=== PATIENT | female | born 1960 ===

== ENCOUNTER 2021-04-04 08:58 | Observation (INO) ==
[~2021-04-04 08:58] MED LIST: Buffered Lidocaine 1% SYRIN 1 ml INTRADERM ONE; Lactated Ringers 1000 ml BAG 1,000 ML IV SCH; Phenylephrine IV 10 MG/ML 1 ml VIAL ONE
[2021-04-04] MEDS ORDERED: ceFAZolin 2 GM PREMIX 2 GM/50 ML BAG ONE (09:13)
[2021-04-04] MEDS ORDERED: ceFAZolin 1 GM ADVAN 1 GM ADDV.VIAL IVPB ONE (09:56)
[2021-04-04] MEDS ORDERED: Lidocaine 2% PF 10 ML AMP ONE (09:59)
[2021-04-04] MEDS ORDERED: Bupivacaine 0.5% SDV PF 30ML VIAL ONE (09:59)
[2021-04-04] MEDS ORDERED: Bupivacaine 0.25% SDV 30 ML ONE (09:59)
[2021-04-04] MEDS ORDERED: fentaNYL 100 mcg/2 ml 50 MCG/ML VIAL ONE ×2 (10:41→12:07)
[2021-04-04] MEDS ORDERED: Midazolam 5 mg/5 ml VIAL 1 mg/ml 5 ml VIAL (5 mg) ONE (10:41)
[2021-04-04] MEDS ORDERED: Midazolam 2 mg/2 ml VIAL 1 mg/ml 2 ml VIAL (2 mg) ONE (11:04)
[2021-04-04] MEDS ORDERED: ROPIVACAINE 5 MG/ML 30 ML BTL (0.5%) ONE (11:32)
[2021-04-04] MEDS ORDERED: Lidocaine 2% PF 5 ML VIAL ONE (13:19)
[2021-04-04] MEDS ORDERED: Propofol 10 MG/ML 20 ML BTL ONE ×2 (13:19→13:50)
[2021-04-04] MEDS ORDERED: Morphine 2 MG/ML SYRINGE IV PRN (13:22)
[2021-04-04] MEDS ORDERED: diPHENhydraMINE 25 mg TAB PO PRN (13:22)
[2021-04-04] MEDS ORDERED: Ondansetron ODT 4 mg TAB 4 MG TAB PO PRN (13:22)
[2021-04-04] MEDS ORDERED: Ondansetron 4 mg VIAL 2 MG/ML 2 ml VIAL IV PRN (13:22)
[2021-04-04] MEDS ORDERED: Magnesium Hydroxide LIQ 30 ML UDC PO PRN (13:22)
[2021-04-04] MEDS ORDERED: diPHENhydraMINE IV 50 MG/ML 1 ml VIAL (BENADRYL) IV PRN (13:22)
[2021-04-04] MEDS ORDERED: Lactulose 30 ml UDC PO PRN (13:22)
[2021-04-04] MEDS ORDERED: Ondansetron 4 mg VIAL 2 MG/ML 2 ml VIAL ONE (13:44)
[2021-04-04] MEDS: Lactated Ringers 1000 ml BAG 1,000 ML IV SCH (16:08)
[2021-04-04] MEDS: oxyCODONE/Acetamin 5/325 mg TAB PO PRN ×2 (17:41→21:57)
[2021-04-04] MEDS: PTO:Dorzolamide 2% OPTH (NF) 10 ML BTL RIGHT EYE SCH (20:16)
[2021-04-04] MEDS: PTO:Brimonidine/Timolol 0.2%/0.5% OPTH(NF) SOL 5 ML RIGHT EYE SCH (20:16)
[2021-04-04] MEDS: Magnesium Hydroxide LIQ 30 ML UDC PO SCH (20:17)
[2021-04-04] MEDS: ceFAZolin 1 GM ADVAN 1 GM in NS 0.9% 50 ML 50 ML IVPB SCH (20:50)
[2021-04-04] MEDS ORDERED: PTO:Latanoprost 0.005% 2.5 ml BTL RIGHT EYE SCH (21:00)
[2021-04-04] MEDS ORDERED: DULoxetine DR 60 mg CAP PO SCH (21:00)
[2021-04-05] MEDS: Lactated Ringers 1000 ml BAG 1,000 ML IV SCH (03:49)
[2021-04-05] MEDS: ceFAZolin 1 GM ADVAN 1 GM in NS 0.9% 50 ML 50 ML IVPB SCH ×2 (04:37→12:42)
[2021-04-05 04:55] LABS: Hematocrit 32 % (35-47); Hemoglobin 10.7 g/dL (12.0-16.0); Mean Platelet Volume 7.4 fL (7.4-10.4); Platelet Count 222 10^3/uL (150-450)
[2021-04-05 05:12] LABS: Calcium 8.7 mg/dL (8.6-10.3); EGFR African American 59.8 (>60); EGFR Non-African American 49.5 (>60)
[2021-04-05] MEDS: oxyCODONE/Acetamin 5/325 mg TAB PO PRN (07:22)
[2021-04-05] MEDS ORDERED: Vitamin THERAPEUTIC TAB PO SCH (09:00)
[2021-04-05] MEDS: Magnesium Hydroxide LIQ 30 ML UDC PO SCH (09:32)
[2021-04-05] MEDS: PTO:Brimonidine/Timolol 0.2%/0.5% OPTH(NF) SOL 5 ML RIGHT EYE SCH (09:33)
[2021-04-05] MEDS: PTO:Dorzolamide 2% OPTH (NF) 10 ML BTL RIGHT EYE SCH (09:34)
[2021-04-05 11:22] VITALS: BP 125/75
== END 2021-04-05 14:30 | disposition home or self-care (01) ==
LOC: SSU 08:58 → OR 08:58
PROVIDERS: ADMIT Orthopaedic Surgery Adult Reconstructive Orthopaedic Surgery; ATTEND Orthopaedic Surgery Adult Reconstructive Orthopaedic Surgery